=== PATIENT | female | born 1955 | race African-American/Black ===

== ENCOUNTER 2019-03-05 12:31 | Observation (INO) | payer MEDICAID ==
[~2019-03-05] VITALS: Ht 160 cm; Wt 76.2 kg
[2019-03-05 12:42] VITALS: Ht 160 cm; Wt 76.2 kg
[2019-03-05 13:13] LABS: BASOPHIL % 0.4 % (0-2); PLATELET COUNT 239 x10^3mcL (130-400); RED CELL DISTRIBUTION WIDTH 13.4 % (11.5-14.5)
[2019-03-05 13:23] LABS: CALCIUM 9.4 mg/dL (8.5-10.1); CARBON DIOXIDE 29.5 mmol/L (21-32); CHLORIDE SERUM 105 mmol/L (98-107); CREATININE SERUM 0.7 mg/dL (0.6-1.0); GFR1 > 60 mL/min; GLUCOSE SERUM 99 mg/dL (74-106); POTASSIUM SERUM 3.3 mmol/L (3.5-5.1); SODIUM SERUM 143 mmol/L (136-145)
[2019-03-05 13:27] LABS: ALBUMIN 3.7 g/dL (3.4-5.0); ALKALINE PHOSPHATASE 85 U/L (46-116); ALT/SGPT 21 U/L (14-59); AST/SGOT 24 U/L (15-37); BILIRUBIN TOTAL 0.32 mg/dL (0.20-1.00)
[2019-03-05] MEDS ORDERED: SOMA350 MG PO (14:56)
[2019-03-05] MEDS ORDERED: MELOXICAM15 M1 PO (14:56)
[2019-03-05] MEDS ORDERED: COZAAR100 MG PO (14:56)
[2019-03-05] MEDS ORDERED: BENADRYL ALLERG25 M1 PO (14:56)
[2019-03-05] MEDS ORDERED: NOR10 PO (14:56)
[2019-03-05] MEDS ORDERED: VENTOLIN H0.09 MG/A1 INH (14:57)
[2019-03-05] MEDS ORDERED: SPIRIVA18 MC1 INH (14:57)
[2019-03-05] MEDS ORDERED: NOR10T PO (14:57)
[2019-03-05] MEDS ORDERED: HYDROXYZINE50 M1 PO (14:58)
[2019-03-05] MEDS ORDERED: GABAPENTIN300 M4 PO (14:58)
[2019-03-05 15:59] LABS: CHOLESTEROL/HDL RATIO 3.5
[2019-03-05 16:03] LABS: T3 TOTAL 1.85 ng/mL
[2019-03-05 16:04] VITALS: BP 142/65
[2019-03-05 16:31] LABS: FREE T4 1.01 ng/dL (0.76-1.46); FREE THYROXINE INDEX 3.7 ug/dL (1.4-4.5); T4(THYROXINE) 12.2 ug/dL (4.7-13.3)
[2019-03-05 16:44] VITALS: BP 143/64
[2019-03-05 20:44] VITALS: BP 127/63
[2019-03-06 05:15] VITALS: BP 123/57
[2019-03-06 06:38] LABS: BASOPHIL % 0.5 % (0-2); PLATELET COUNT 229 x10^3mcL (130-400); RED CELL DISTRIBUTION WIDTH 13.2 % (11.5-14.5)
[2019-03-06 06:56] LABS: CALCIUM 8.9 mg/dL (8.5-10.1); CARBON DIOXIDE 29.9 mmol/L (21-32); CHLORIDE SERUM 106 mmol/L (98-107); CREATININE SERUM 0.7 mg/dL (0.6-1.0); GFR1 > 60 mL/min; GLUCOSE SERUM 95 mg/dL (74-106); MAGNESIUM 1.9 mg/dL (1.8-2.4); PHOSPHOROUS 3.9 mg/dL (2.5-4.9); POTASSIUM SERUM 3.8 mmol/L (3.5-5.1); SODIUM SERUM 144 mmol/L (136-145)
[2019-03-06 08:20] VITALS: BP 115/58
[2019-03-06 08:40] LABS: AMPHETAMINE QUAL UR NONE DETECTED (See below)
[2019-03-06 10:25] LABS: UA SPECIFIC GRAVITY 1.025 (1.005-1.035); microscopic required? YES; urine erythrocyte NEGATIVE (NEGATIVE)
[2019-03-06 13:18] VITALS: BP 101/68
[2019-03-06 16:22] VITALS: BP 101/68
== END 2019-03-06 16:50 | disposition home or self-care (01) | DRG 756 ==
LOC: ED 12:31 → DU 15:04
PROVIDERS: Emergency Medicine; ADMIT General Practice
DX: F41.1 Generalized anxiety disorder (principal); E78.5 Hyperlipidemia, unspecified; F43.0 Acute stress reaction; R51 Headache; E87.6 Hypokalemia; I10 Essential (primary) hypertension; J44.9 Chronic obstructive pulmonary disease, unspecified; F17.210 Nicotine dependence, cigarettes, uncomplicated; M19.90 Unspecified osteoarthritis, unspecified site; Z68.29 Body mass index [BMI] 29.0-29.9, adult
CPT/HCPCS: 83880; 84439; G0378; J7620; Q0092; Q0163